=== PATIENT | female | born 1990 | race Caucasian/White ===

== ENCOUNTER 2025-07-03 09:18 | Outpatient (REF) | payer OTHER, SELFPAY ==
--- OUTSIDE RECORDS SUMMARY | 2025-07-03 11:11 | XMS_ITS | Clinical Summary ---
Author Organization [facility] Address [address] [place] [address] Care Team Providers Care Link Wire Fabric Machine Tender Name Role Phone Abdirahman Falcon MD Primary Care Provider [phone] Allergies Active Allergy Reactions Severity Noted Date Comments Lavender Oil 10/05/2021 Sulfa Drugs Hives/Urticaria,Nausea and Vomiting 05/28/2016 Medications Medication Sig Dispensed Refills Start Date End Date Status sertraline (ZOLOFT) 100 MG tablet Take 2 Tabs by mouth daily. 60 Tab 0 11/06/2019 Active lamoTRIgine (LAMICTAL OR) Take by mouth. 0 Active TRAZODONE HCL OR Take by mouth. 0 Acti ve levothyroxine 112 MCG tablet Take 1 Tablet by mouth daily. 30 Tablet 11 10/28/2022 Active azithromycin (Zithromax) 250 MG tablet 2 pills PO today, then 1 pill PO QD for 4 days. 6 Tablet 0 06/25/2023 Active benzonatate (Tessalon Perles) 100 MG capsule Take 1 Capsule by mouth 3 times daily as needed for Cough. 30 Capsule 0 07/06/2023 Active ALBUTEROL SULFATE 108 (90 Base) MCG/ACT Aero Soln Inhale 2 Puffs into the lungs every 4 hours as needed for Cough or Wheezing. 8.5 g 0 07/06/2023 Active Active Problems Problem Noted Date Anxiety 11/06/2019 PTSD (post-traumatic stress disorder) PCOS (polycystic ovarian syndrome) 06/09 Overview: US 02/19/16, 04/28/16 Vitamin D deficiency 06/09/2016 Adnexal mass 06/09/2016 Overview: 04/28/16 US - bilateral Hypothyroid Overview: pt follows dianelys caputo Depression Immunizations Name Administration Dates Next Due Hepatitis X-[id number]-[id number] + 02/19/2016 Family History Medical History Relation Name Comments NC Father's side 2 Cancer, Other Maternal Grandfather ? ovar aki vs colon as primary CA Ovarian Maternal Grandmother CA Ovarian Mother Cancer, Other Mother cervical cance r Depression Mother's side 2 Relation Name Status Comments Father's side 1 Father's side 2 Maternal Grandfather Maternal Grandmother Mother Mother's side 1 Mother's side 2 Social History Tobacco Use Types Packs/Day Years Used Date Smoking Tobacco: Never Smokeless Tobacco: Never Tobacco Cessation:Counseling Given: Not Answered Alcohol Use Standard Drinks/Week Comments No 0 (1 standard drink = 0.6 oz pur e alcohol) occ Sex Assigned at Date Recorded Not on file Last Filed Vital Signs Vital Sign Reading Time Taken Comments Blood Pressure 120/80 07/06/2023 3:00 PM EST Pulse 109 07/06/2023 3:00 PM EST Temperature 36.3 C (97.4 F) 07/06/2023 3:00 PM EST Respiratory Rate 18 11/02/2022 9:18 AM EDT Oxygen Saturation 97% 06/25/2023 2:05 PM EST Inhaled Oxygen Concentration - - Weight 136.4 kg (300 lb 9.6 oz) 05/18/2023 8:19 AM EDT Height 167.6 cm (5' 6 ) 11/02/2022 9:18 AM EDT Body Mass Index 48.52 11/02/2022 9:18 AM EDT Plan of Treatment Health Maintenance Due Date Last Done Comments Covid-19 Vaccine (#1) 02/19/1991 DTAP/TDAP/TD (1 - Tdap) 2009 CERVICAL CANCER SCREENING 2011 BASELINE HEALTH EXAM 18-39 05/28/2021 05/28/2016, CHOLESTEROL SCREENING 05/28/2021 05/28/2016 BMI CHECK/ADVISE 08/01/2024 04/28/2017 DEPRESSION SCREENING/FOLLOWUP 08/01/2024, 11/06/2019, 05/28/2016, Additional history exists SOCIAL NEEDS SCREENING 08/01/2024 INFLUENZA (#1) 2025 PNEUMOCOCCAL VACCINE FOR HIG H RISK PATIENTS (#1) 2055 Care Teams Link Wire Fabric Machine Tender Relationship Specialty Start Date End Date Abdirahman Falcon MD [address] [place] [address] [phone] PCP - General Internal Medicine 07/29/15
--- OUTSIDE RECORDS SUMMARY | 2025-07-03 11:11 | XMS_ITS | Encounter Summary ---
Author Organization [facility] Address [address] [place] [address] Care Team Providers Care Assistant Import Manager Name Role Phone Abdirahman Falcon MD Primary Care Provider [phone] Encounter Details Date Type Department Care Team Description 08/19/2022 Hospital Medical Records [address] [place] [address] Georgie Patel Social History Tobacco Use Types Packs/Day Years Used Date Smoking Tobacco: Never Smokeless Tobacco: Never Alcohol Use Standard Drinks/Week Comments No 0 (1 standard drink = 0.6 oz pur e alcohol) occ Sex Assigned at Date Recorded Not on file documented as of this encounter Plan of Treatment Not on file documented as of this encounter Visit Diagnoses Not on filedocumented in this encounter Care Teams Assistant Import Manager Relationship Specialty Start Date End Date Abdirahman Falcon MD [address] [place], [place] [phone] PCP - General Internal Medicine 07/29/15 documented as of this encounter
--- OUTSIDE RECORDS SUMMARY | 2025-07-03 11:11 | XMS_ITS | Encounter Summary ---
[facility] Organization [facility] Address [address] [place] [address] Care Team Providers Care As400 Programmer Analyst Name Role Phone Abdirahman Falcon MD Primary Care Provider [phone] Encounter Details Date Type Department Care Team Description 08/03/2016 Manager Supply Chain Report Medical Records [address] [place] [address] Julieta Turk Social History Tobacco Use Types Packs/Day Years Used Date Smoking Tobacco: Never Alcohol Use Standard Drinks/Week Comments Yes 0 (1 standard drink = 0.6 oz pur e alcohol) occ Sex Assigned at Date Recorded Not on file documented as of this encounter Plan of Treatment Not on file documented as of this encounter Visit Diagnoses Not on filedocumented in this encounter Care Teams As400 Programmer Analyst Relationship Specialty Start Date End Date Abdirahman Falcon MD [address], [place] [phone] PCP - General Internal Medicine 07/29/15 documented as of this encounter
--- OUTSIDE RECORDS SUMMARY | 2025-07-03 11:11 | XMS_ITS | Encounter Summary ---
Author Organization [facility] Address [address] [place] [address] Care Team Providers Care Assistant Federal Public Defender Name Role Phone Abdirahman Falcon MD Primary Care Provider [phone] Encounter Details Date Type Department Care Team Description 11/21/2020 Wool Hat Flanger Report Medical Records [address] [place] [address] Jelena Samano MD Social History Tobacco Use Types Packs/Day Years [...] filedocumented in this encounter Care Teams Assistant Federal Public Defender Relationship Specialty Start Date End Date Abdirahman Falcon MD [address] [place], [place] [phone] PCP - General Internal Medicine 07/29/15 documented as of this encounter
--- OUTSIDE RECORDS SUMMARY | 2025-07-03 11:11 | XMS_ITS | Encounter Summary ---
Author Organization [facility] Address [address] [place] [address] Care Team Providers Care Leaf Sticker Name Role Phone Abdirahman Falcon MD Primary Care Provider [phone] Encounter Details Date Type Department Care Team Description 01/15/2019 Orders Only Medical Records [address] [place] [id number] Abstract, Provider Social History Tobacco Use Types Packs/Day Years Used Date Smoking Tobacco: Never Alcohol Use Standard Drinks/Week Comments No 0 (1 standard drink = 0.6 oz pur e alcohol) occ Sex Assigned at Date Recorded Not on file documented as of this encounter Plan of Treatment Not on file documented as of this encounter Visit Diagnoses Not on filedocumented in this encounter Care Teams Leaf Sticker Relationship Specialty Start Date End Date Abdirahman Falcon MD [address] [place] [address] PCP - General Internal Medicine 07/29/15 documented as of this encounter
--- OUTSIDE RECORDS SUMMARY | 2025-07-03 11:11 | XMS_ITS | Encounter Summary ---
Author Organization [facility] Address [address] [place] [address] Care Team Providers Care Paper Cup Machine Tender Name Role Phone Abdirahman Falcon MD Primary Care Provider [phone] Encounter Details Date Type Department Care Team Description 05/25/2023 Pt. Non Urgent Medical Question Adult Medicine [address] [phone] Abdirahman Falcon MD [address] [place] [address] [phone] Social History Tobacco Use Types Packs/Day Years Used Date Smoking Tobacco: Never Smokeless Tobacco: Never Alcohol Use Standard Drinks/Week Comments No 0 (1 standard drink = 0.6 oz pur e alcohol) occ Sex Assigned at Date Recorded Not on file COVID-19 Exposure Response Date Recorded In the last 10 days, have yo u been in contact with someone who was confirmed or suspected to have Coronavirus/COVID-19? No / Unsure 05/18/2023 8:08 AM EDT documented as of this encounter Miscellaneous Notes * Telephone Encounter - Sheila Norris - 05/25/2023 2:42 PM EDTFrom: Uvaldo Rocha To: Vladimir Falcon Sent: 05/25/2023 2:24 PM EDT Subject: Break the ice Hello, how can I get break the ice on my account I work for [employer] and want extra protection on myaccount documented in this encounter Plan of Treatment Not on file documented as of this encounter Visit Diagnoses Not on filedocumented in this encounter Care Teams Paper Cup Machine Tender Relationship Specialty Start Date End Date Abdirahman Falcon MD [address] [place] [address] [phone] PCP - General Internal Medicine 07/29/15 documented as of this encounter
--- OUTSIDE RECORDS SUMMARY | 2025-07-03 11:11 | XMS_ITS | Encounter Summary ---
[facility] Address [address] [place] [address] Care Team Providers Care Testing Machine Operator Name Role Phone Abdirahman Falcon MD Primary Care Provider [phone] Encounter Details Date Type Department Care Team Description 08/11/2022 Tankerman Report Medical Records [address] [place] [address] Jelena Samano MD Social History Tobacco Use [...] on filedocumented in this encounter Care Teams Testing Machine Operator Relationship Specialty Start Date End Date Abdirahman Falcon MD [address] [place], [place] [phone] PCP - General Internal Medicine 07/29/15 documented as of this encounter
--- OUTSIDE RECORDS SUMMARY | 2025-07-03 11:11 | XMS_ITS | Encounter Summary ---
Author Organization [facility] Address [address] [place] [address] Care Team Providers Care Harp Maker Name Role Phone Abdirahman Falcon MD Primary Care Provider [phone] Encounter Details Date Type Department Care Team Description 11/01/2022 Telephone Adult Medicine [address] [phone] Abdirahman Falcon MD [address] [place] [phone] Social History Tobacco Use Types Packs/Day Years [...] suspected to have Coronavirus/COVID-19? No / Unsure 11/02/2022 9:04 AM EDT documented as of this encounter Plan of Treatment Not on file documented as of this encounter Visit Diagnoses Not on filedocumented in this encounter Care Teams Harp Maker Relationship Specialty Start Date End Date Abdirahman Falcon MD [address] [place] [phone] PCP - General Internal Medicine 07/29/15 documented as of this encounter
--- OUTSIDE RECORDS SUMMARY | 2025-07-03 11:11 | XMS_ITS | Encounter Summary ---
Author Organization [facility] Address [address] [place] [address] Care Team Providers Care Topographic Computator Name Role Phone Abdirahman Falcon MD Primary Care Provider [phone] Reason for Visit * Reason Onset Date Comments Medication 05/28/2016 Encounter Details Date Type Department Care Team Description 05/28/2016 Telephone Adult Medicine [address] [phone] Abdirahman Falcon MD [address] [place] [address] [phone] Medication Social History Tobacco Use Types Packs/Day Years Used Date Smoking Tobacco: Never Alcohol Use Standard Drinks/Week Comments Yes 0 (1 standard drink = 0.6 oz pur e alcohol) occ Sex Assigned at Date Recorded Not on file documented as of this encounter Miscellaneous Notes * Telephone Encounter - Cristine Mendez M.A. - 05/28/2016 4:34 PM EDT Message left for patient to return my call. * Telephone Encounter - Abdirahman Falcon MD - 05/28/2016 4:32 PM EDT Please inform the patient the med was sent * Telephone Encounter - Bettye Batista - 05/28/2016 4:20 PM EDT Caller requesting call back from provider: Dr Falcon Is the caller the patient? YES If caller is not the patient, what is the callers name? N/A Callers relationship to patient? N/A If person calling is not the patient themselves, is there a verbal release in FYI or permanent comments for this person: Reason for call back: Patient just seen today and forgot to ask if Dr Falcon could give her a rx for hydrocortisone cream for her ezcema, she would like this sent to [facility], in [place], pleasecall patient and advise Caller offered to speak with the nurse for assistance: YES Response: Patient offered to speak with nurse for assistance and patient agreed. Message forwarded to nurse. documented in this encounter Plan of Treatment Not on file documented as of this encounter Visit Diagnoses Not on filedocumented in this encounter Care Teams Topographic Computator Relationship Specialty Start Date End Date Abdirahman Falcon MD [address] [place] [phone] PCP - General Internal Medicine 07/29/15 documented as of this encounter
--- OUTSIDE RECORDS SUMMARY | 2025-07-03 11:11 | XMS_ITS | Encounter Summary ---
Author Organization [facility] Address [address] [place] [address] Care Team Providers Care Asphalt Paver Operator Name Role Phone Abdirahman Falcon MD Primary Care Provider [phone] Reason for Visit * Reason Onset Date Comments Information Needed 02/04/2021 Encounter Details Date Type Department Care Team Description 02/04/2021 Telephone OBGYN - [place] [address] [place] [address] Lakia Read CNM [address] [place] [address] Information Needed Social History Tobacco Use Types Packs/Day Years Used Date Smoking Tobacco: Never Alcohol Use Standard Drinks/Week Comments No 0 (1 standard drink = 0.6 oz pur e alcohol) occ Sex Assigned at Date Recorded Not on file COVID-19 Exposure Response Date Recorded In the last month, have you been in contact with someone who was confirmed or suspected to have Coronavirus / COVID-19? No / Unsure 02/04/2021 11:59 AM EDT documented as of this encounter Miscellaneous Notes * Telephone Encounter - Juana Haynes L.P.N. - 02/06/2021 5:24 PM EDT Called pt , she is not a [employer] pt but I was going to try to help her since it is after 5pm and the office is closed. I think she hung up. I called her back and left a msg on her voicemail * Telephone Encounter - Saira Buck - 02/04/2021 3:35 PM EDT The pt called and states she had a message that she might need to have repeat labs done - she is not sure why this may be needed - asking to speak to a nurse - please call documented in this encounter Plan of Treatment Not on file documented as of this encounter Visit Diagnoses Not on filedocumented in this encounter Care Teams Asphalt Paver Operator Relationship Specialty Start Date End Date Abdirahman Falcon MD [address] [place] [address] [phone] PCP - General Internal Medicine 07/29/15 documented as of this encounter
[2025-07-03 11:16] LABS: Erythrocyte Sedimentation Rate 46 MM/HR (0-20)
[2025-07-04 05:44] LABS: Lyme Abs Screen <0.90 index
[2025-07-04 20:33] LABS: Anti Nuclear Antibody Pattern Nuclear, Homogeneous; Anti Nuclear Antibody Screen POSITIVE (NEGATIVE); Anti Nuclear Antibody Titer 1:320 titer
== END 2025-07-03 09:19 | disposition home or self-care (01) ==
LOC: HO.LAB 09:18
PROVIDERS: PCP Internal Medicine; Visit Provider Psychiatry & Neurology Neurology
DX: G43.909 Migraine, unspecified, not intractable, without status migrainosus (principal); M79.604 Pain in right leg; M79.605 Pain in left leg; M54.50 Low back pain, unspecified; G89.29 Other chronic pain; R29.898 Other symptoms and signs involving the musculoskeletal system; Z01.84 Encounter for antibody response examination
CPT/HCPCS: 36415; 82550; 85652; 86038; 86039; 86431; 86617; 86618; 99202

== ENCOUNTER 2025-07-03 09:18 | Outpatient (AMB) | payer OTHER, SELFPAY ==
--- OUTSIDE RECORDS SUMMARY | 2025-06-11 13:40 | XMS_ITS | Encounter Summary ---
Author Organization [facility] Address [address] [place] [phone] Phone Care Team Providers Care Ip Counsel Name Role Phone Abdirahman Falcon MD Primary Care Provider + Reason for Referral * MRI/CAT Scan - Authorized Specialty Diagnoses / Procedures Referred By Wade wells Referred To Contact Diagnoses Multinodular goiter Procedures CT Neck Jelena Samano MD [address] [place] [phone] Phone: tel: fax: [email or web address] Referral ID Status Reason Start Date Expiration Date V isits Requested Visits Authorized [id number] Authorized 06/11/2025 08/11/2025 1 1 Reason for Visit * Reason Comments Multinodular goiter Encounter Details Date Type Department Care Team (Latest Contact Info) Description 06/11/2025 1:40 PM EST Office Visit [facility] [address] [place] [phone] Jelena Samano MD [address] [place] [phone] 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 Not on kyung e 11/26/2022 Are you concerned about learning? Not on file 11/26/2022 No 11/26/2022 No 11/26/2022 Digital Access Answer Date Recorded No 12/28/2022 No 12/28/2022 Reliable internet access at home? Not on file 12/28/2022 Device with a working camera? Not on file Comments Unknown Sex and Gender Information Value Date Recorded Sex Assigned at Not on file Legal Sex Female 3:13 PM EDT Gender Identity Not on file Sexual Orientation Not on file documented as of this encounter Last Filed Vital Signs Vital Sign Reading Time Taken Comments Blood Pressure 128/82 06/11/2025 1:31 PM EST Pulse 87 06/11/2025 1:31 PM EST Temperature - - Respiratory Rate - - Oxygen Saturation 99% 06/11/2025 1:31 PM EST Inhaled Oxygen Concentration - - Weight - - Height 168 cm (5' 6.14 ) 06/11/2025 1:31 PM EST Body Mass Index - - documented in this encounter Progress Notes * Jelena Samano MD - 06/11/2025 1:40 PM EST Subjective: Patient ID: Uvaldo Rocha is a 34 y.o. female here to follow-up on her hypothyroidism and thyroidnodules. Last visit on 10/17/2023. HPI She had problem with her insurance about a year ago and was without levothyroxine for about 6 months she has to use Her goiter is bothering her more especially when supine, it is pressing on her throat, has to use 8pillows. Gets short of breath very easily especially with movements and when supine. Seeing a flyer repairer at [place] on 06/20/2025. Started having problem with swallowing. She is having problem with her balance and right leg weakness and tremor. She had a brain MRI in 04/2025 which did not show any major concern. She has an appointment with a neurologist in [place] in 07/2025. The insurance did not cover the CT neck what we planned over a year ago. She is interested in having the CT neck and possibly seeing a thyroid surgeon. Her weight is up by about 15 pounds within the last year, she gained this weight while was off levothyroxine and could not lose it. Thyroid nodules: Left lobe enlargement noted on exam in 01/2015. On ultrasound in 04/2015 solitary left 3 cm nodule. FNA left benign (BFC and micro and macro follicular pattern, watery colloid and blood) in 06/2015. Since 2016 new right mid/lower 8 mm nodule and left nodule is larger by 12/2018 at 4.7 cm because ofcystic degeneration. Last ultrasound on 06/29/2023 at [facility] compared to ultrasound in 04/2020: Normal size right lobe. Right of isthmus 7 mm nodule stable. Enlarged left lobe. Stable left 5.5 x 3.6 x 4.2 cm nodule. She had general anesthesia at the time of ovarian cyst surgery years ago without issue with intubation. Hypothyroidism: Subclinical in 12/2013. Overt hypothyroidism by 01/2015 when levothyroxine started. High TPO. Last TSH high normal at 3.32 on 03/21/2025-on 125 mcg levothyroxine daily, taking it appropriately since the spring 2024. TSH normal 1.4 on 10/10/2023. Review of Systems: See HPI Objective: Physical Exam:pleasant, comfortable appearing overweight woman. Significantly enlarged left thyroidlobe and isthmus causing slight tracheal deviation. No stridor. Right thyroid lobe is slightly enlarged without palpable nodule. Has some facial erythema and pressure in the left thyroid bed when arms held up. Heart has regular rate and rhythm. Lungs clear to auscultation. Palms warm and dry. Upperextremity DTR normal. No hand tremor. Assessment/Plan: Problem List Items Addressed This Visit Multinodular goiter 34-year-old woman with history of a large cystic nodule in the left lobe which had benign FNA in 06/2015 when it measured 3 cm. This nodule underwent cystic degeneration and became larger at 4.7 cm by 12/2018. Last ultrasound in 06/2023 at [facility] measured this nodule at 5.5 cm and listed it as stable. She has a stable 7 mm nodule right of midline. Images were not available for review. We were planning a CT neck in 09/2023 because of difficulty breathing supine and CHAU. Unfortunately the insurance did not cover the CAT scan. No new images since last ultrasound in 06/2023. Her compression symptoms worsened with increased thyroid size which is likely related to being off of the levothyroxine for about 6 months within the last year. She is being evaluated by flyer repairer soon. - Will schedule CT neck to assess mass effect on the trachea -Keep TSH close to the lower limit of normal -Patient is willing to consider thyroid surgery, will send referral to Dr. Sean Deras after CT neck available. 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 Unfortunately she was without her levothyroxine for about 6 months about a year ago, restarted in the spring 2024. Through that time she gained about 15 pounds compression symptoms from her goiter worsened. Currently clinically euthyroid. Last TSH high normal 3.32 in 03/2025 while taking 125 mcg levothyroxine daily. -Continue current replacement for now -Check TSH today. Adjust levothyroxine dose to keep TSH close to the lower limit of normal Relevant Orders Thyroid Stimulating Hormone (TSH), with Reflex Follow-up in 6 months. Spent 30 minutes with patient reviewing interim history, labs, thyroid ultrasound, education, coordination of care and documentation. I have maintained a long-term, longitudinal relationship with this patient, overseeing care of chronic conditions, including above diagnosis. This care relationship has significantly influenced my decision-making and treatment plans during today's encounter. documented in this encounter Miscellaneous Notes * Assessment & Plan Note - Jelena Samano MD - 06/11/2025 2:31 PM EST Associated Problem(s): Multinodular goiter 34-year-old woman with history of a large cystic nodule in the left lobe which had benign FNA in 06/2015 when it measured 3 cm. This nodule underwent cystic degeneration and became larger at 4.7 cm by 12/2018. Last ultrasound in 06/2023 at [facility] measured this nodule at 5.5 cm and listed it as stable. She has a stable 7 mm nodule right of midline. Images were not available for review. We were planning a CT neck in 09/2023 because of difficulty breathing supine and CHAU. Unfortunately the insurance did not cover the CAT scan. No new images since last ultrasound in 06/2023. Her compression symptoms worsened with increased thyroid size which is likely related to being off of the levothyroxine for about 6 months within the last year. She is being evaluated by flyer repairer soon. - Will schedule CT neck to assess mass effect on the trachea -Keep TSH close to the lower limit of normal -Patient is willing to consider thyroid surgery, will send referral to Dr. Sean Deras after CT neck available. 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 Unfortunately she was without her levothyroxine for about 6 months about a year ago, restarted in the spring 2024. Through that time she gained about 15 pounds compression symptoms from her goiter worsened. Currently clinically euthyroid. Last TSH high normal 3.32 in 03/2025 while taking 125 mcg levothyroxine daily. -Continue current replacement for now -Check TSH today. 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 thyroiditis Expected: 06/11/2026 (Approximate), Expires: 12/09/2026 documented as of this encounter Procedures Procedure Name Priority Date/Time Associated Diagnosis Comments CT NECK Routine 06/11/2025 2:13 PM EST Multinodular goiter documented in this encounter Visit Diagnoses Diagnosis Hypothyroidism due to Bijal's thyroiditis- Primary Multinodular goiter Nontoxic multinodular goiter documented in this encounter Care Teams Ip Counsel Relationship Specialty Start Date End Date Abdirahman Falcon MD [address] [place] [phone] PCP - General Internal Medicine 11/25/22 documented as of this encounter Additional Source Comments The information contained in this document represents components of the legal health record. It is not the complete legal health record.[facility]
--- NOTE | 2025-07-03 09:27 | A.OFFVIS_ITS ---
Intake Visit Reasons: tremor Allergies Sulfa (Sulfonamide Antibiotics) (SULFA (SULFONAMIDE ANTIBIOTICS)) Allergy (Unknown, Unverified 04/17/20 16:00) unknown, vomiting HPI Comments Details: The patient is a 34 year old individual presenting for evaluation of a chronic balance problem, leg weakness, and pain. The patient reports a long-standing history of balance issues, including tripping and falling. Symptoms include leg tremors, leg weakness, and poor balance, which are exacerbated by standing or walking for long periods and have significantly affected the patient's work, leading to a medical leave. The patient also reports pain that radiates from the lower back down the legs, which has been present for over a year with varying intensity. The patient denies any urinary incontinence. The patient experiences severe migraines with photophobia once or twice a month and regular headaches approximately twice a week. Past medical history is significant for bipolar disorder, major depressive disorder, PTSD, and anxiety, which the patient attributes to childhood trauma. The patient reports a variable mood, including manic, calm, and anxious days. The patient denies a personal or family history of diabetes. [facility] Medical History (Updated 07/03/25 @ 09:42 by Favian Dotson MD) Low back pain Review of Systems Narrative - Neurological: Reports a chronic balance problem with tripping and falling, intermittent leg tremors, leg weakness, and difficulty with prolonged standing or walking. - Neurological: Reports severe migraines with photophobia 1-2 times per month and regular headaches twice per week. - Musculoskeletal: Reports pain radiating from the lower back down the legs, present for over a year. - Genitourinary: Denies incontinence. - Psychiatric: Reports a history of bipolar disorder, major depressive disorder, PTSD, and anxiety. - Psychiatric: Reports variable mood, with manic, calm, and anxious days. Physical Exam Neuro Other: Mental Status: Alert and oriented to person, place, and time. Normal attention. Normal spontaneous speech, fluency, and comprehension. No obvious issues with mood and memory. Affect is appropriate. Cranial Nerves: CN II: Visual argueta full to confrontation, visual acuity intact. CN III, IV, : Pupils equal, round, reactive to light and accommodation. Extraocular movements are normal. CN V: Facial sensation is normal. CN VII: Facial movements symmetrical. CN VIII: Hearing intact to bedside conversation is normal. CN IX, X: Palate elevates symmetrically. CN XI: Shoulder shrug and head turn symmetrical. CN XII: Tongue midline without atrophy or fasciculations. Motor: Bulk and tone normal in all extremities. No significant muscle weakness in arms and legs. No drift. Reflexes: Deep tendon reflexes are absent and knees and trace and ankles with flexor plantars Coordination: [id number] is normal. Gait and Station: No obvious gait abnormality. No ataxia or instability. Extrapyramidal: Full facial expressions and blinking. No rigidity. Movements are appropriate wi th no tremor or abnormality. Speech: Normal; no dysarthria or tremor. Assessment & Plan Assessment & Plan (1) Migraine without aura: Comment: MRI brain [facility] at [facility] in Apr 2025: Couple of punctate WM hyperintensities Code(s): G43.009 - Migraine without aura, not intractable, without status migrainosus Category: Medical Qualifiers: Status migrainosus presence: without status migrainosus Intractability: not intractable Qualified Code(s): G43.009 - Migraine without aura, not intractable, without status migrainosus (2) Leg weakness, bilateral: Code(s): R29.898 - Other symptoms and signs involving the musculoskeletal system Category: Medical (3) Leg pain, bilateral: Code(s): M79.604 - Pain in right leg; M79.605 - Pain in left leg Category: Medical (4) Low back pain: Code(s): M54.50 - Low back pain, unspecified Category: Medical Qualifiers: Chronicity: chronic Back pain laterality: midline Sciatica presence: without sciatica Qualified Code(s): M54.50 - Low back pain, unspecified; G89.29 - Other chronic pain Plan Impression: 34 years old woman with moderate obesity in complain of chronic back pain and bilateral leg weakness and pain. She also talked about frequent migraine type of headaches. Her examination did not reveal any obvious focal finding other than absent knee reflexes. Her brain MRI revealed no significant finding. I have requested EMG nerve conduction study to rule out neuropathy and radiculopathy, x-ray of lumbosacral spine to rule out spine disease, and some laboratories to rule out metabolic/inflammatory conditions. She is advised to stay active at could use [id number] Tylenol/Advil type of medicine as needed. Orders: Orders NE electromyogram (EMG) Today M79.604 - Pain in right leg, M79.605 - Pain in left leg, R29.898 - Other symptoms and signs involving the musculoskeletal system XR lumbar spine 2-3V Today M54.50 - Low back pain, unspecified JODI Reflex Titer and Pattern Today M54.50 - Low back pain, unspecified NE nerve conduction velocity Today M79.604 - Pain in right leg, M79.605 - Pain in left leg, R29.898 - Other symptoms and signs involving the musculoskeletal system Erythrocyte Sedimentation Rate Today M54.50 - Low back pain, unspecified Creatine Kinase Total Today M54.50 - Low back pain, unspecified, M79.604 - Pain in right leg, M79.605 - Pain in left leg Rheumatoid Factor Today M54.50 - Low back pain, unspecified Lyme IgG/IgM w/reflex to WB Today M54.50 - Low back pain, unspecified Coding Level of Care Code New Pt Level 4 (18997) Diagnoses Migraine without aura and without status migrainosus, not intractable G43.009 Status migrainosus presence: without status migrainosus Intractability: not intractable Leg weakness, bilateral R29.898 Leg pain, bilateral M79.604; M79.605 Chronic midline low back pain without sciatica M54.50; G89.29 Chronicity: chronic Back pain laterality: midline Sciatica presence: without sciatica
--- OUTSIDE RECORDS SUMMARY | 2025-07-03 10:05 | XMS_ITS | Clinical Summary ---
Author Organization [facility] Address [address] [place], [place] Phone Care Team Providers Care Rod Finisher Name Role Phone Abdirahman Falcon MD Primary Care Provider [phone] Allergies Active Allergy Reactions Criticality Noted Date Comments Lavender Oil 10/05/2021 Sulfa (Sulfonamide Antibiotics) Hives,Nausea And Vomiting 05/28/2016 Medications lamotrigine (LAMICTAL ORAL) Take by mouth. Active trazodone HCl (TRAZODONE ORAL) Take by mouth. Active sertraline (ZOLOFT) 100 mg tablet Take 2 Tabs by mouth daily. 11/06/2019 Active levothyroxine (SYNTHROID, LEVOTHROID) 112 mcg tablet Take 1 Tablet by mouth daily. 10/28/2022 Active Active Problems Problem Noted Date Diagnosed Date Depression 07/18/2024 Hypothyroid 07/18/2024 Overview (07/18/2024): [facility] Anxiety 11/06/2019 PTSD (post-traumatic stress disorder) 11/06/2019 Adnexal mass 06/09/2016 Overview (07/18/2024): 04/28/16 US - bilateral PCOS (polycystic ovarian syndrome) 06/09/2016 Overview (07/18/2024): US 02/19/16, 04/28/16 Vitamin D deficiency 06/09/2016 Encounters Date Type Department Care Team Description 06/24/2025 Nurse Triage [address] [phone] Abdirahman Falcon MD 06/11/2025 3:25 PM EST Lab Draw Station - [address] [facility] [address] [facility] [address] [place] [phone] 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 [address] [place] [phone] Poor balance; Tremor Discharge Disposition: Home or Self Care 04/17/2025 10:30 AM EDT Office Visit [address] [phone] Tigre Cameron PA Poor balance (Primary Dx); Tremor; Weakness of both lower extremities 04/15/[address] [phone] Abdirahman Falcon MD 04/12/2025 7:30 AM EDT Ancillary Procedure [facility] [address] [phone] Chest pain, unspecified type 04/12/2025 Telephone [facility] [address] [phone] Vaishali Fuentes NP from Last 3 Months Immunizations Immunization Administration Dates Next Due Hep B, Unspecified 02/19/2016 Tdap Tetanus diptheria acell ular pertussis (Boostrix; Adacel) 7yo and older 03/28/2025 Surgical History Surgery Date Site/Laterality Comments APPENDECTOMY PROCEDURE: HISTORICAL APPENDECTOMY Medical History Medical History Date Comments Hypothyroid DX:Hypothyroid; COMMENT: [facility] Depression DX:Depression PCOS (polycystic ovarian syndrome) 06/09/2016 DX:PCOS (polycystic ovarian syndrome); COMMENT: US 02/19/16, 04/28/16 Vitamin D deficiency 06/09/2016 DX:Vitamin D deficiency Adnexal mass 06/09/2016 DX:Adnexal mass; COMMENT: 04/28/16 US - bilateral Family History Medical History Relation Name Comments Heart attack Father's side 1 Other cancer Maternal Grandfather ? ovari an vs colon as primary Ovarian cancer Maternal Grandmother Other cancer Mother cervical cancer Ovarian cancer Mother Depression Mother's side 1 Relation Name Status Comments Father's side 1 Father's side 2 Maternal Grandfather Maternal Grandmother Mother Mother's side 1 Mother's side 2 Social History Tobacco Use Types Packs/Day Years Used Date Smoking Tobacco: Never Smokeless Tobacco: Never Tobacco Cessation:Counseling Given: Not Answered Alcohol Use Standard Drinks/Week Comments No 0 (1 standard drink = 0.6 oz pur e alcohol) Housing Instability Answer Date Recorde d Are you worried that in the next 2 months you may not have stable housing? No 03/28/2025 Food Access & Nutrition Answer Date Rec orded Do you have access to a vari ety of food including fruits and vegetables? Yes 03/28/2025 Access to Healthcare Answer Date Record ed Within the last 3 months, ho w many times did you visit the emergency department for your medical care? 0 03/28/2025 Health Literacy Answer Date Recorded How often do you need to hav e someone help you when you read instructions, pamphlets, or other written material from your doctor or pharmacy? Never 03/28/2025 Caregiver: How often do you need to have someone help you when you read instructions, pamphlets, or other written material from your doctor or pharmacy? Not on file 03/28/2025 Financial Risk Answer Date Recorded How hard is it for you to pa y for the very basics like food, housing, medical care, and air conditioning / heating? Somewhat hard 03/28/2025 Transportation Answer Date Recorded Has the lack of transportati on kept you from meetings, work, or from getting things needed for daily living? No Has the lack of transportati on kept you from medical appointments or from getting medications? No 03/28/2025 Social Isolation Answer Date Recorded How often do you feel lonely or isolated from those around you? Patient declined 03/21/2025 Food Risk Answer Date Recorded Within the past 12 months we worried whether our food would run out before we got money to buy more. Never true 03/28/2025 Within the past 12 months th e food we bought just didn't last and we didn't have money to get more. Never true 03/28/2025 Dependent Care Answer Date Recorded Do you need help finding or paying for care for your loved ones. For example, child monitor or elderly care for an older adult? No 03/28/2025 Education Answer Date Recorded Do you think completing more education or training, like finishing a GED, going to college, or learning a trade, would be helpful for you? No 03/28/2025 Employment and Income Answer Date Recor ded During the last four weeks, have you been actively looking for work? No 03/28/2025 Living Situation Answer Date Recorded What is your living situation? Unrecognized valu e 03/28/2025 Comments No Sex and Gender Information Value Date Recorded Sex Assigned at Female 07/18/2024 1:37 PM EST Legal Sex Female 10:40 AM EST Gender Identity Female 07/18/2024 1:37 PM EST Sexual Orientation Not on file Obstetrics History Last Filed Vital Signs Vital Sign Reading Time Taken Comments Blood Pressure 116/76 04/17/2025 10:14 AM EDT Pulse 96 04/17/2025 10:14 AM EDT Temperature 36.3 C (97.4 F) 04/17/2025 10:14 AM EDT Respiratory Rate 14 03/28/2025 8:53 AM EDT Oxygen Saturation 98% 04/17/2025 10:14 AM EDT Inhaled Oxygen Concentration - - Weight 151 kg (333 lb) 04/17/2025 10:14 AM EDT Height 167.6 cm (5' 5.98 ) 04/17/2025 10:14 AM E DT Body Mass Index 53.77 04/17/2025 10:14 AM EDT Plan of Treatment Upcoming Encounters Date Type Department Care Team (Late st Contact Info) Description 07/04/2025 2:[address] [facility] [address] [place] [phone] 10/14/2025 9:45 AM EDT Office Visit Adult Medicine [facility] [address] [place] [phone] Abdirahman Falcon MD [address] [place] [address] 12/03/2025 1:00 PM EDT Consult Bariatric Surgery - [address] [place] [phone] Liss Jensen PA [address] [place] [phone] Health Maintenance Due Date Last Done Comments Cervical Cancer Screening: P ap Smear 2011 Hepatitis B Vaccines (2 of 3 - 19+ 3-dose series) 03/18/2016 02/19/2016 HPV Vaccines (1 - 3-dose SCD M series) 2017 Cholesterol Screening (Lipid Panel) 07/10/2022 05/28/2016 HIV Screening 07/10/2022 Hepatitis C Screening 07/10/2022 COVID-19 Vaccine (1 - 2024-2 6 season) 2025 Influenza Vaccine (#1) 2025 Social Influencers of Health Screening 03/28/2026 03/28/2025 DTaP,Tdap,and Td Vaccines (2 - Td or Tdap) 03/28/2035 03/28/2025 RSV Immunization Adult Patie nts (1 - 1-dose 75+ series) 2065 Depression Screening Completed 03/28/2025 HIB Vaccines Aged Out No longer eligi ble based on patient's age to complete this topic Hepatitis A Vaccines Aged Out No long er eligible based on patient's age to complete this topic IPV Vaccines Aged Out No longer eligi ble based on patient's age to complete this topic MMR Vaccines Aged Out No longer eligi ble based on patient's age to complete this topic Meningococcal ACWY Vaccine Aged Out N o longer eligible based on patient's age to complete this topic Meningococcal B Vaccine Aged Out No l onger eligible based on patient's age to complete this topic Pneumococcal Vaccine: Pediat rics (0 to 5 Years) and At-Risk Patients (6 to 49 Years) Aged Out No longer eligi ble based on patient's age to complete this topic RSV Immunization Patients Un gladis 20 months Aged Out No longer eligible b ased on patient's age to complete this topic Varicella Vaccines Aged Out No longer eligible based on patient's age to complete this topic Procedures Procedure Name Priority Date/Time Associated Diagnosis Comments TRIIODOTHYRONINE FREE Routine 06/11/2025 3:24 PM EST Bijal's thyroiditis FREE THYROXINE WITH REFLEX TO FREE TRIIODOTHYRONINE Routine 06/11/2025 3:24 PM EST Bijal's thyroiditis THYROID STIMULATING HORMONE WITH REFLEX TO FREE T4 AND FREE T3 Routine 06/11/2025 3:24 PM EST Bijal's thyroiditis MR BRAIN WO AND W CONTRAST Routine 04/26/2025 10:15 AM EDT Poor balance Tremor STRESS TEST ONLY EXERCISE Routine 04/12/2025 8:01 AM EDT Chest pain, unspecified type LIPID PANEL Routine 05/28/2016 from Last 3 Months or Most Recently Relevant to Health Maintenance Results * (ABNORMAL) Thyroid stimulating hormone with reflex to free t4 and free t3 (06/11/2025 3:24 PM EST) TSH 7.98(H) 0.40 - 4.00 mcIU/mL LAB CHEMISTRY METHOD 06/11/2025 7:07 PM EST [facility] Blood Venous blood specimen / Unknown Venipuncture / Unknown 06/11/2025 3:24 PM EST 06/11/2025 3:24 PM EST us Jelena Samano MD LAB BLOOD ORDERABLES Final Res ult [facility] [address] [place] [address], [place] [phone] * Free thyroxine with reflex to free triiodothyronine (06/11/2025 3:24 PM EST) Free T4 0.97 0.70 - 1.80 ng/dL LAB CHEMISTRY METHOD 06/11/2025 8:02 PM EST [facility] Blood Venous blood specimen / Unknown Venipuncture / Unknown 06/11/2025 3:24 PM EST 06/11/2025 3:24 PM EST Jelena Samano MD LAB BLOOD ORDERABLES Final Res ult Performing Organization Address City/[facility]/ZIP Co de Phone Number [facility] [address] [place] [address], [place] [phone] * Triiodothyronine free (06/11/2025 3:24 PM EST) T3, Free 311 230 - 420 pcg/dL LAB CHEMISTRY METHOD 06/11/2025 8:44 PM EST [facility] Blood Venous blood specimen / Unknown Venipuncture / Unknown 06/11/2025 3:24 PM EST 06/11/2025 3:24 PM EST Jelena Samano MD LAB BLOOD ORDERABLES Final Res ult Performing Organization Address City/[facility]/ZIP Co de Phone Number [facility] [address] [place] [address], [place] [phone] * MR Brain wo and w Contrast (04/26/2025 10:15 AM EDT) Anatomical Region Laterality Modality Head and Neck Magnetic Resonan ce 04/26/2025 12:1 1 PM EDT Impressions 04/26/2025 1:09 PM EDT Normal brain MRI without and with contrast. -------- FINAL REPORT -------- Dictated By: DHRUV HOSKINS Dictated Date: 04/26/2025 12:11 ET Assigned Physician: DHRUV HOSKINS Reviewed and Electronically Signed By: DHRUV HOSKINS Signed Date: 04/26/2025 13:09 ET Workstation ID: [id number] Transcribed By: Self Edit Transcribed Date: 04/26/2025 12:11 ET Narrative 04/26/2025 1:09 PM EDT PROCEDURE: Brain MRI INDICATION: Poor balance, falls, tremor TECHNIQUE: Multiplanar, multisequence MRI of the brain without and with contrast. 20 mL Dotarem injected intravenously without complication COMPARISON: Head CT 02/20/2018. FINDINGS: No acute infarct, mass effect, or intracranial hemorrhage. Brain parenchyma is normal in signal. No abnormal intracranial enhancement or susceptibility artifact. Sella and foramen magnum are normal. Ventricles, sulci, and cisterns are normal in size and configuration. No hydrocephalus. Major intracranial arterial flow voids are normal. Major dural venous sinuses enhance normally with contrast. Sinuses and mastoid air cells are clear. Orbits and skull base soft tissues are normal. Calvarium is normal. Procedure Note Dhruv Hoskins MD - 04/26/2025 PROCEDURE: Brain MRI INDICATION: Poor balance, falls, tremor TECHNIQUE: Multiplanar, multisequence MRI of the brain without and withcontrast. 20 mL Dotarem injected intravenously without complication COMPARISON: Head CT 02/20/2018. FINDINGS: No acute infarct, mass effect, or intracranial hemorrhage. Brain parenchyma is normal in signal. No abnormal intracranialenhancement or susceptibility artifact. Sella and foramen magnum are normal. Ventricles, sulci, and cisterns are normal in size and configuration. Nohydrocephalus. Major intracranial arterial flow voids are normal. Major dural venoussinuses enhance normally with contrast. Sinuses and mastoid air cells are clear. Orbits and skull base soft tissues are normal. Calvarium is normal. IMPRESSION: Normal brain MRI without and with contrast. -------- FINAL REPORT -------- Dictated By: DHRUV HOSKINS Dictated Date: 04/26/2025 12:11 ET Assigned Physician: DHRUV HOSKINS Reviewed and Electronically Signed By: DHRUV HOSKINS Signed Date: 04/26/2025 13:09 ET Workstation ID: [id number] Transcribed By: Self Edit Transcribed Date: 04/26/2025 12:11 ET us Abdirahman Falcon MD IMG MRI PROCEDURES Final Result * Exercise stress test (04/12/2025 8:01 AM EDT) Exercise/inject ion duration (min) 0 CV STRESS ONLY Exercise/inject ion duration (sec) 12 CV STRESS ONLY Peak HR 137 bpm CV STRESS ONLY Baseline HR 107 bpm CV STRES S ONLY Estimated workload 2.2 METS CV STRESS ONLY Percent HR 74 % CV STRESS ONLY Target HR 158 bpm CV STRESS ONLY Max HR Percent 73 % CV ST RESS ONLY ST Depression (mm) 0 mm CV STRESS ONLY Baseline SBP 144 CV STRE SS ONLY Baseline DBP 86 CV STRE SS ONLY O2 sat rest 94 % CV STRES S ONLY Peak SBP 144 mmHg CV STRESS ONLY Peak DBP 86 mmHg CV STRESS ONLY Rate Pressure Product 19,728.0 mmHg*bpm CV STRESS ONLY Anatomical Region Laterality Modality Cardiac Diagnost ic 04/12/2025 7:48 AM EDT 04/12/2025 8:17 AM EDT Narrative 04/17/2025 1:11 PM EDT Stress ECG was non-diagnostic due to failure to achieve 85 percent of the maximum age-predicted heart rate. No ischemic ECG changes at this level of stress. Exercise stress test was performed. Patient reported no symptoms during the stress test. Exercise capacity was poor. The patient was deemed unsafe to continue to ambulate on the treadmill and the test was aborted after 12 seconds of exercise; would recommend coronary CTA vs pharmacologic stress testing if clinical suspicion persists. Stress Findings A Reynaldo protocol stress test was performed. Overall, the patient's exercise capacity was poor. Total stress time was 0 min and 12 sec. The test to be stopped due to unstable gait and inability to ambulate safely on the treadmill. Prior to the test she reported progressive leg weakness with falls at home and is waiting to see a neurologist. She wanted to attempt the test but was having signficiant difficulty from the moment the treadmill started and the test was subsequently aborted for safety reasons. The patient's hemodynamic response was inadequate for diagnosis. Heart rate demonstrated a exaggerated response. The patient reported no symptoms during the stress test. ECG 34 year old female with chest pain; rule out ischemia. Cardiac risk factors include morbid obesity. No known previous cardiac events. Baseline ECG shows sinus tachycardia with nonspecific T wave abnormality and incomplete right bundle branch block. There were no arrhythmias during stress. There is no ST segment changes during stress. There were no arrhythmias during recovery. The result of the stress ECG was non-diagnostic for ischemia due to failure to achieve 85 percent of the maximum age-predicted heart rate. Exercise capacity was poor and the patient was deemed unsafe to continue ambulating on the treadmill. If clinical concern persists, would recommend coronary CTA for further evaluation. Abdirahman Falcon MD CV STRESS PROCEDURES Final Resu lt * Lipid panel (05/28/2016) LDL/HDL Ratio 3 0 - 4 Triglycerides 95 0 - 150 mg/dL Cholesterol 175 0 - 200 mg/dL HDL 56 >=40 mg/dL LDL Cholesterol 100 0 - 100 mg/dL Blood Venous blood specimen / Unknown Historical Provider LAB BLOOD ORDERABLES [place] [facility] Result from Last 3 Months or Most Recently Relevant to Health Maintenance Insurance [employer] Care Teams Rod Finisher Relationship Specialty Start Date End Date Abdirahman Falcon MD [address] [place] [phone] PCP - General Internal Medicine 03/21/25
--- OUTSIDE RECORDS SUMMARY | 2025-07-03 10:05 | XMS_ITS | Encounter Summary ---
Author Organization [facility] Address [address] [place] [address] Phone Care Team Providers Care Boiler House Supervisor Name Role Phone Abdirahman Falcon MD Primary Care Provider + Reason for Visit * Reason Onset Date Comments Appointment 06/11/2025 Encounter Details Date Type Department Care Team ([facility] st Contact Info) Description 06/11/2025 Telephone [facility] [address] [place] [address] [email or web address] [email or web address] Appointment Social History Tobacco Use Types Packs/Day Years [...] on file documented as of this encounter Progress Notes * Cathi Preciado - 06/11/2025 8:25 AM EST [facility] [employer] Smart Phrases: 24-48 Hour No-Show Notice If caller not the patient: Name: Relationship: Cancel Appt Visit Type: FOLLOW UP VISIT Cancelation Reason: Personal Reasons Cancelation Detail: later appointment Was Appt Reschedule: Yes Awareness: I have reiterated our late cancellation policy to the caller. Agent Action: > Reason for Call: NO SHOW > Comment: Enter Cancel Appt date > Route: Route to FD if the No-Show is a future date. > Route: OXBOW SDV and Sick Visit No-Show, route to RN for rescheduling. Do not reschedule. Call Center: Ensure the appt has been cancel from the future tab > Reiterate Scripting: Provide our late cancellation policy to the caller documented in this encounter Plan of Treatment Upcoming Encounters Date Type Department Care Team (Late st Contact Info) Description 12/10/2025 2:00 PM EDT Office Visit [facility] [address] [place] [phone] Jelena Samano MD [address] [place] [phone] documented as of this encounter Visit Diagnoses Not on filedocumented in this encounter Care Teams Boiler House Supervisor Relationship Specialty Start Date End Date Abdirahman Falcon MD [address] [place] [phone] PCP - General Internal Medicine 11/25/22 documented as of this encounter Additional Source Comments The information contained in this document represents components of the legal health record. It is not the complete legal health record.[facility]
--- OUTSIDE RECORDS SUMMARY | 2025-07-03 10:05 | XMS_ITS | Encounter Summary ---
Author Organization [facility] Address [address] [place] [address] [place] [address] Phone Care Team Providers Care Sap Project Manager Name Role Phone Abdirahman Falcon MD Primary Care Provider + Reason for Visit * Reason Onset Date Comments Imaging Order 06/19/2025 Encounter Details Date Type Department Care Team ([facility] st Contact Info) Description 06/19/2025 Telephone [facility] [address] [place] [address] Jelena Samano MD [address] [place] [phone] [email or web address] Imaging Order Social History Tobacco Use Types Packs/Day Years [...] as of this encounter Progress Notes * Queta Riojas MA - 07/02/2025 11:52 AM EST Faxed back to [facility] notifying * Jelena Samano MD - 07/02/2025 11:[address] neck preferred with IV contrast. * Cecy Ma - 06/19/2025 9:31 AM EST Received fax back regarding pt's CT Neck, [facility] needs to know if this is with or without contrast. Please review so we can let them know of the preference. documented in this encounter Plan of Treatment Upcoming Encounters Date Type Department Care Team (Late st Contact Info) Description 12/10/2025 2:00 PM EDT Office Visit [facility] [address] [place] [phone] Jelena Samano MD [address] [place] [phone] [email or web address] documented as of this encounter Visit Diagnoses Not on filedocumented in this encounter Care Teams Sap Project Manager Relationship Specialty Start Date End Date Abdirahman Falcon MD [address] [place] [phone] PCP - General Internal Medicine 11/25/22 documented as of this encounter Additional Source Comments The information contained in this document represents components of the legal health record. It is not the complete legal health record.[facility]
--- OUTSIDE RECORDS SUMMARY | 2025-07-03 10:05 | XMS_ITS | Clinical Summary ---
Author Organization [facility] Address [address] [place] [address] Phone Care Team Providers Care Stretcher Helper Name Role Phone Abdirahman Falcon MD Primary Care Provider + Allergies Active Allergy Reactions Criticality Noted Date Comments Lavender Hives,Rash,Swelling Low 10/05/2021 Sulfa (Sulfonamide Antibiotics) Hives,Nausea And Vomiting 05/28/2016 Medications sertraline HCl (SERTRALINE, ZOLOFT,) 100 MG tablet Take 100 mg by mouth daily. Active lamoTRIgine (LAMICTAL) 200 MG IMMEDIATE release tablet Take 200 mg by mouth daily. Active traZODone (DESYREL) 300 MG tablet Take 300 mg by mouth nightly at bedtime. Active levothyroxine (SYNTHROID, LEVOTHROID) 150 MCG tablet Take 1 tablet (150 mcg total) by mouth every morning. 90 tablet 1 5 Active levothyroxine (SYNTHROID, LEVOTHROID) 125 MCG tabletIndications: Acquired hypothyroidism TAKE 1 TABLET BY MOUTH EVERY MORNING 90 tablet 1 5 07/02/20 25 Discontin ued(Dose adjustmen t) Active Problems Problem Noted Date Diagnosed Date Multinodular goiter 10/29/2023 Assessment & Plan (06/11/2025 2:43 PM EST): 34-year-old woman with history of a large cystic nodule in the left lobe which had benign FNA in 06/2015 when it measured 3 cm. This nodule underwent cystic degeneration and became larger at 4.7 cm by 12/2018. Last ultrasound in 06/2023 at [facility] measured this nodule at 5.5 cm and [...] last year. She is being evaluated by submarine advisory team watch officer soon. - Will schedule CT neck to assess mass effect on the trachea -Keep TSH close to the lower limit of normal -Patient is willing to consider thyroid surgery, will send referral to Dr. Sean Deras after CT neck available. Assessment & Plan (10/29/2023 8:46 PM EDT): 33-year-old woman with history of a large cystic nodule in the left lobe which had benign FNA in 06/2015 when it measured 3 cm. This nodule underwent cystic degeneration and became larger at 4.7 cm x 12/2018. Last ultrasound in 06/2023 at [facility] measured this nodule at 5.5 cm and listed it as stable. She has a stable 7 mm nodule right of midline. Images were not available for review. Within the last few months patient is having a hard time breathing with walking and stairs and cannot lay flat because getting short of breath. Denies any dysphagia, voice change, cough or asthma. Had no PFTs. On exam may have a slight tracheal deviation but no stridor. We discussed that if the left thyroid lobe enlargement is causing her shortness of breath she may consider left lobectomy with isthmusectomy. She is not ready to meet the surgeon. I offered her to have a neck CT to take a look at it the trachea in relation to her thyroid. She agreed with the CT, will schedule at [facility]. 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 Unfortunately she [...] close to the lower limit of normal Assessment & Plan (10/29/2023 8:46 PM EDT): Has been treated with levothyroxine since 2014. Clinically and biochemically euthyroid on 125 mcg daily. Last TSH 1.4 in 09/2023. Will continue current dose. Reviewed symptoms of under and over replacement, patient to call if concern. Otherwise would recheck TSH in 6 months. 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 [address] [place] [address] Cathi Preciado Appointment from Last 3 Months Social History Tobacco Use Types Packs/Day Years Used Date Smoking Tobacco: Never Smokeless Tobacco: Never Tobacco Cessation:Counseling Given: Not Answered Alcohol Use Standard Drinks/Week Comments Never 0 [...] on file Sexual Orientation Not on file Last Filed Vital Signs Vital Sign Reading Time Taken Comments Blood Pressure 128/82 06/11/2025 1:31 PM EST Pulse 87 06/11/2025 1:31 PM EST Temperature - - Respiratory Rate - - Oxygen Saturation 99% 06/11/2025 1: 31 PM EST Inhaled Oxygen Concentration - - Weight 134.6 kg (296 lb 12.8 oz) 2023 11:07 AM EDT Height 168 cm (5' 6.14 ) 06/11/2025 1:31 PM EST Body Mass Index 47.7 10/17/2023 11:07 AM EDT Plan of Treatment Upcoming Encounters Date Type Department Care Team (Late st Contact Info) Description 12/10/2025 2:00 PM EDT Office Visit [facility] [address] [place] [address] [place] [address] Jelena Samano MD [address] [place] [phone] [email or web address] Health Maintenance Due Date Last Done Comments Adult Td,Tdap Booster 1990 DEPRESSION SCREENING 2002 HEPATITIS C SCREENING 2008 HIV ONE-TIME SCREENING (18-65 YEARS) 2008 PAP SMEAR 2011 INFLUENZA VACCINE (#1) 2025 COVID-19 VACCINE (2024- season) 2025 TSH LEVEL 06/11/2026 06/11/2025, 03/02, 10/17/2023, Additional history exists SMOKING STATUS SCREENING (Once After 26 Yrs) Completed 06/11/2025 HEPATITIS A VACCINES Aged Out No long er eligible based on patient's age to complete this topic HIB VACCINES Aged Out No longer eligi ble based on patient's age to complete this topic MENINGOCOCCAL VACCINES (ACWY) Aged Out No longer eligible based on patient's age to complete this topic MENINGOCOCCAL VACCINES (B) Aged Out N o longer eligible based on patient's age to complete this topic PNEUMOCOCCAL VACCINES (0-49 years) Aged Out No longer eligible based on patient's age to complete this topic Medical Devices Not on file Procedures Procedure Name Priority Date/Time Associated Diagnosis Comments CT NECK Routine 06/11/2025 2:13 PM EST Multinodular goiter TSH WITH REFLEX Routine 10/10/2023 9:16 AM EDT Acquired hypothyroidism from Last 3 Months or Most Recently Relevant to Health Maintenance Insurance [employer] Care Teams Stretcher Helper Relationship Specialty Start Date End Date Abdirahman Falcon MD [address] [place] [phone] PCP - General Internal Medicine 11/25/22 Additional Source Comments The information contained in this document represents components of the legal health record. It is not the complete legal health record.[facility]
--- OUTSIDE RECORDS SUMMARY | 2025-07-03 10:05 | XMS_ITS ---
Author Name [facility] Organization Unknown Care Team Organization Name Specialty Phone Email Start Date End Da te [facility] MADIHA HASSAN Primary Care 06/08/2022
== END 2025-07-03 16:11 | disposition home or self-care (01) ==
PROVIDERS: PCP Internal Medicine; Visit Provider Psychiatry & Neurology Neurology
DX: G43.009 Migraine without aura, not intractable, without status migrainosus (principal); R29.898 Other symptoms and signs involving the musculoskeletal system; M79.604 Pain in right leg; M79.605 Pain in left leg; M54.50 Low back pain, unspecified; G89.29 Other chronic pain
CPT/HCPCS: 99204